=== PATIENT | female | born 1945 | race Caucasian/White ===

== ENCOUNTER → 2022-11-26 | Outpatient (CLI) | payer MEDICARE | END | disposition home or self-care (01) | LOC: RAD 12:18 | PROVIDERS: ATTEND Surgery | DX: K44.9 Diaphragmatic hernia without obstruction or gangrene (principal) | CPT/HCPCS: 74220 ==

== ENCOUNTER 2024-03-22 10:25 | Emergency (ER) | payer MEDICARE ==
[~2024-03-22] VITALS: Ht 165.1 cm; Wt 73.0 kg
[2024-03-22 10:29] VITALS: TEMP 95.9
[2024-03-22] MEDS: epiNEPHrine 1 mg/ml inj IV STA ×2 (10:38→10:50)
[2024-03-22] MEDS: atropine 1 MG/1 ML vial IV ONE ×2 (10:38→10:51)
[2024-03-22] MEDS: sodium bicarbonate (8.4%) 1 mEq/ml syringe IV ONE ×2 (10:38→11:41)
[2024-03-22] MEDS: normal saline 1000ML IV soln IVB ONE ×2 (10:38→10:56)
[2024-03-22] MEDS: fentaNYL/PF 50MCG/1 ML 2ML syringe IV ONE ×3 (10:45→11:27)
[2024-03-22 10:49] VITALS: PULSE 110; RESP 17
[2024-03-22 10:51] LABS: BASOPHILS # (AUTO) 0.1 X10'3 (0-0.2); EOSINOPHILS # (AUTO) 0.2 X10'3 (0-0.9); LYMPHOCYTES # (AUTO) 6.3 X10'3 (1.1-4.8); MONOCYTES # (AUTO) 0.4 X10'3 (0-0.9)
[2024-03-22 10:53] LABS: EOSINOPHILS % (AUTO) 1.9 % (0-6); LYMPHOCYTES % (AUTO) 55.2 % (21-51); MEAN PLATELET VOLUME 7.8 FL (7.4-10.4); MONOCYTES % (AUTO) 3.7 % (2-12); NEUTROPHILS # (AUTO) 4.3 X10'3 (1.8-7.7); NEUTROPHILS % (AUTO) 38.2 % (42-75); PLATELET COUNT 105 X10'3 (140-440); WHITE BLOOD COUNT 11.4 X10'3 (4.5-11.0)
[2024-03-22] MEDS: NORepinephrine 8mg/ 250ml NS 250 ML IV PRN (11:05)
[2024-03-22 11:08] LABS: RED BLOOD COUNT 3.68 X10'6 (4.20-5.60)
[2024-03-22 11:09] LABS: HEMOGLOBIN 11.7 g/dl (12.0-16.0); MEAN CORPUSCULAR HEMOGLOBIN 31.8 PG (27.0-31.0); MEAN CORPUSCULAR HGB CONC 33.5 g/dL (33.0-36.5); RED CELL DISTRIBUTION WIDTH 13.9 % (11.5-14.5)
[2024-03-22] MEDS ORDERED: epiNEPHrine inj 5 MG in normal saline 250ml IV soln 245 ML IV PRN (11:15)
[2024-03-22] MEDS: piperacillin/tazo 3.375gm/50ml 50 ML IV STA (11:19)
[2024-03-22] MEDS ORDERED: iohexol 350MG/ML 100ml bottle IV ONE (11:19)
[2024-03-22 11:32] LABS: ABG BASE EXCESS -23.6 mmol/L (-2.0-3.0); ABG HCO3 11.7 mmol/L (21.0-28.0); ABG OXYGEN SATURATION 89.6 % (94.0-98.0); ABG PCO2 (T) 74.4 mmHg (32.0-45.0); ABG PH (T) 6.791 (7.350-7.450); ABG PO2 (T) 82.1 mmHg (83.0-108.0); ALLEN'S TEST POSITIVE; FCOHb 0.3 % (0.5-1.5); FHHb 10.4 % (0.0-5.0); FO2Hb 89.3 % (94.0-98.0); MODE VENT - AC/PRVC; PATIENT TEMPERATURE 34.1; PEEP 5 cm H2O; RESPIRATORY RATE 16 b/min; TIDAL VOLUME 450 mL; TOTAL HEMOGLOBIN 10.7 G/dl (12.0-16.0)
[2024-03-22] MEDS: COMMUNICATION ORDER 1 EA MISC MC ONE ×2 (11:36→12:04)
[2024-03-22 11:38] LABS: TOTAL CELLS COUNTED 100
[2024-03-22 11:39] LABS: PLATELET ESTIMATE DECREASED
[2024-03-22 11:43] LABS: ALANINE AMINOTRANSFERASE 155 U/L (12-78); ALBUMIN 1.6 G/DL (3.4-5.0); ALBUMIN/GLOBULIN RATIO 0.8 (1.1-1.5); ALKALINE PHOSPHATASE 54 IU/L (46-116); ANION GAP 15 (8-16); ASPARTATE AMINO TRANSFERASE 177 U/L (10-37); BILIRUBIN,TOTAL 0.2 MG/DL (0.1-1.0); BLOOD UREA NITROGEN 15 MG/DL (7-18); BUN/CREATININE RATIO 11.6 (10.0-20.0); CALCIUM 6.9 MG/DL (8.5-10.1); CHLORIDE 114 MMOL/L (99-107); CREATININE 1.29 MG/DL (0.40-0.90); GLUCOSE 307 MG/DL (70-104); SODIUM 147 MMOL/L (135-145); TOTAL CARBON DIOXIDE 17.6 MMOL/L (24-32); TOTAL PROTEIN 3.5 G/DL (6.4-8.2); eCRCL 31 ML/MIN; eGFR 40 ML/MIN
[2024-03-22] MEDS: FENTANYL-0.9 % NACL/PF 100 ML IV SCH (11:46)
[2024-03-22 11:48] LABS: MAGNESIUM 2.3 MG/DL (1.5-2.4)
[2024-03-22 11:50] LABS: POTASSIUM 4.6 MMOL/L (3.5-5.1)
[2024-03-22 12:16] VITALS: BP 158/83; PULSE 106; RESP 24; O2SAT 99
[2024-03-22 12:49] VITALS: BP 151/85; PULSE 107; O2SAT 95
[2024-03-22] MEDS: morphine 10mg/ml inj. IV ONE (13:21)
[2024-03-22 13:40] VITALS: RESP 8
[2024-03-22] MEDS: morphine 10mg/ml inj. IV PRN (13:40)
[2024-03-22] MEDS ORDERED: NORepinephrine 8 MG in NS 250 ML BAG (32 mcg/ml) IV ONE (17:00)
== END 2024-03-22 18:39 | disposition admitted as inpatient to this hospital (09) ==
LOC: ER 10:25
DX: S06.9XAA Unspecified intracranial injury with loss of consciousness status unknown, initial encounter (principal); J96.01 Acute respiratory failure with hypoxia; I46.9 Cardiac arrest, cause unspecified; X58.XXXA Exposure to other specified factors, initial encounter; Y93.89 Activity, other specified; Y92.89 Other specified places as the place of occurrence of the external cause; Y99.8 Other external cause status; E11.9 Type 2 diabetes mellitus without complications
CPT/HCPCS: 36415; 36600; 70450; 71045; 71275; 80053; 82803; 83605; 83735; 84145; 84484; 85007; 85018; 85025; 87040; 87070; 87077; 87186; 92950; 93005; 94002; 96361; 96365; 96375; 99291; 99292; C1758; J0171; J0461; J2270; J2543; J3010; J3490; J7030; Q9967; Z7610; 94760; 99285; J2274